=== PATIENT | male | born 1980 | race Caucasian/White ===

== ENCOUNTER 2017-01-18 20:21 | Emergency (ER) | payer MEDICAID ==
[2017-01-18 20:33] VITALS: BP 127/77; PULSE 90; RESP 26; O2SAT 99
--- NOTE | 2017-01-18 20:46 | EDPHY ---
H & P Time Seen by Provider: 01/18/17 20:42 HPI/ROS: CHIEF COMPLAINT: Low back pain. HISTORY OF PRESENT ILLNESS: The patient is a 36-year-old male with a history of chronic back pain presenting with severe left lower back pain. He has not had this type of pain for 6 months. He has been taking Oxycodone and has a Fentanyl patch. He has taken 4 oxycodone today. He admits associated nausea. He denies radicular symptoms, urinary complaints, incontinence, or other complaints. REVIEW OF SYSTEMS: A complete 10-point review of systems was performed and is negative except for those items mentioned in the HPI. Past Medical/Surgical History: Kidney stone x3, spontaneous pneumothorax, anxiety, ear abscess, chronic back pain. Social History: Nonsmoker, . Smoking Status: Never smoked Physical Exam: General Appearance: Alert, very anxious, pacing about the room, does not appear in pain. Eyes: Pupils equal and round, no conjunctival pallor or injection ENT, Mouth: Mucous membranes moist Neck: Normal inspection Back: Left lumbar paraspinous tenderness Respiratory: Lungs are clear to auscultation Cardiovascular: Regular rate and rhythm Gastrointestinal: Abdomen is soft and non-tender Neurological: A&O, motor 5/5 of the lower extremities, and sensory intact to light touch, normal gait Skin: Warm and dry, no rash Extremities: Nontender, no pedal edema Psychiatric: Mood and affect normal Constitutional: Initial Vital Signs Heart Rate 90 01/18/17 20:29 Respiratory Rate 26 H 01/18/17 20:29 Blood Pressure 127/77 H 01/18/17 20:29 O2 Sat (%) 99 01/18/17 20:29 O2 Delivery Mode Room Air Allergies/Adverse Reactions: droperidol Allergy (Verified 01/18/17 20:26) haloperidol [From Haldol] Allergy (Verified 01/18/17 20:26) haloperidol lactate [From Haldol] Allergy (Verified 01/18/17 20:26) methocarbamol Allergy (Verified 01/18/17 20:26) steroids Allergy (Uncoded 01/18/17 20:26) Home Medications: Medication Instructions Recorded traZODone [traZODONE 100MG (*)] 100 mg PO HS 12/22/14 Zolpidem Tartrate [Ambien 5MG (*)] 5 mg PO HS PRN 12/27/15 traMADol [Ultram 50 mg (*)] 100 mg PO TID PRN 06/17/16 methylPREDNISolone [Medrol 4mg (*)] 4 mg PO 0730,2100 #0 tab 06/20/16 oxyCODONE IR [Oxycodone Ir (*)] 10 mg PO Q3H #0 tab 06/20/16 Diazepam [Valium 5 MG (*)] 5 mg PO Q6 PRN #10 tab 01/18/17 Fentanyl 01/18/17 methylPREDNISolone [Medrol Dose 1 each PO AD #1 ea 01/18/17 Conor] Medical Decision Making ED Course/Re-evaluation: 36-year-old male with a history of chronic back pain presents with severe left lower back pain. He has had this pain before but tells me it is worse than it has been in the past 6 months. On exam he is tender in the left lumbar paraspinous region but has no bony tenderness. I looked the patient up on the [place] [employer] Drug Monitoring Program and reviewed his prescriptions. I offered intranasal Ketamine but he declined. I offered Gabapentin but he declined this. We will treat with 60mg IM Toradol, 4mg PO Nausea, 10mg PO Valium , and a lidocaine injection. He is comfortable with this plan. The patient declined the lidocaine trigger point injection. I had an extensive conversation with the patient. The primary problem appears to be extreme anxiety. He is taking Effexor for depression and anxiety. He is also seeing a therapist. He is requesting IV Dilaudid, though I declined to give him his medication. He has a fentanyl patch on and is already taken several oxycodone today. I do not feel that further narcotics are the answer to his problem. I feel that the Valium 10 mg orally will significantly help his anxiety. As well the Toradol IM will help the pain. A lidocaine patch was placed. Will prescribe a short course of Valium and a Medrol Dosepak. He will follow up with his doctor at [facility] on Friday. Differential Diagnosis: Differential diagnosis for back pain includes muscular pain, herniated disc, epidural abscess, discitis, spine fracture, intra-abdominal causes and urinary tract infection. - Data Points Medications Given: Discontinued Medications Diazepam (Valium) 10 mg PO EDNOW ONE Stop: 01/18/17 21:05 Last Admin: 01/18/17 21:16 Dose: 10 mg Ketorolac Tromethamine (Toradol) 60 mg IM EDNOW ONE Stop: 01/18/17 21:05 Last Admin: 01/18/17 21:16 Dose: 60 mg Lidocaine (Lidoderm 5%) 1 ea TD EDNOW ONE Stop: 01/18/17 21:07 Last Admin: 01/18/17 21:16 Dose: 1 ea Ondansetron HCl (Zofran Odt) 4 mg PO EDNOW ONE Stop: 01/18/17 21:06 Last Admin: 01/18/17 21:15 Dose: 4 mg Departure - Departure Disposition: Home, Routine, Self-Care Clinical Impression: Low back pain Qualifiers: Chronicity: chronic Back pain laterality: left Sciatica presence: without sciatica Qualified Code(s): M54.5 - Low back pain Condition: Good Instructions: Acute Low Back Pain (ED) Additional Instructions: Follow up with your primary care provider for reevaluation. Use Valium as prescribed when needed for muscle spasm. Referrals: Rain Mir [Primary Care Provider] - As per Instructions Prescriptions: Diazepam [Valium 5 MG (*)] 5 mg PO Q6 PRN #10 tab PRN Reason: muscle spasm methylPREDNISolone [Medrol Dose Conor] 1 each PO AD #1 ea Report Scribed for: Selena Boone Report Scribed by: Josue Hooper Date of Report: 01/18/17 Time of Report: 20:45 Physician Review and Approval Statement: 01/18/17 20:45 Portions of this note were transcribed by a outside medical sales representative. I personally performed a history, physical exam, medical decision making, and confirmed accuracy of information the transcribed note.
[2017-01-18] MEDS ORDERED: KETOROLAC 30 MG/1 ML SDV IM ONE (21:04)
[2017-01-18] MEDS ORDERED: DIAZEPAM 5 MG TAB PO ONE (21:04)
[2017-01-18] MEDS ORDERED: ONDANSETRON DISINTEGRATING 4 MG TAB PO ONE (21:05)
[2017-01-18] MEDS ORDERED: LIDOCAINE 5% 1 EA PATCH TD ONE (21:06)
== END 2017-01-18 21:56 | disposition home or self-care (01) ==
DX: M54.5 Low back pain (principal)
CPT/HCPCS: J1885